=== PATIENT | male | born 1955 | race Caucasian/White ===

== ENCOUNTER 2017-01-23 13:18 | Observation (INO) | payer BC ==
[2017-01-23] MEDS ORDERED: Aspirin 81 MG Tab.Chew PO ONE (13:32)
[2017-01-23] MEDS ORDERED: Sodium Chloride 0.9% 2.5 ML Syringe FLUSH PRN (13:32)
[2017-01-23] MEDS ORDERED: Sodium Chloride 0.9% 10 ML Syringe FLUSH PRN (13:32)
[2017-01-23] MEDS ORDERED: Sodium Chloride 0.9% 1,000 ML IV ONE (13:44)
[2017-01-23] MEDS ORDERED: Sodium Chloride 0.9% 1,000 ML IV SCH (13:45)
--- NOTE | 2017-01-23 13:52 | EDM.PDOC ---
ED HPI GENERAL MEDICAL PROBLEM - General Chief Complaint: Cardiovascular Problem Stated Complaint: unk Time Seen by Provider: 01/23/17 13:30 - History of Present Illness INITIAL COMMENTS - FREE TEXT/NARRATIVE: HISTORY AND PHYSICAL: History of present illness: Patient 61-year-old male presents with concern of nausea diaphoresis and possible he'll miss he states he has not eaten anything and has not been taking adequate fluids to try mucous membranes and was working in hot humid conditions all day. He denies chest pain palpitations numbness weakness or Review of systems: As per history of present illness and below otherwise all systems reviewed and negative. Past medical history: As per history of present illness and as reviewed below otherwise noncontributory. Surgical history: As per history of present illness and as reviewed below otherwise noncontributory. Social history: No reported history of drug or alcohol abuse. Family history: As per history of present illness and as reviewed below otherwise noncontributory. Physical exam: HEENT: Atraumatic, normocephalic, pupils reactive, negative for conjunctival pallor or scleral icterus, mucous membranes dry, throat clear, neck supple, nontender, trachea midline. Lungs: Clear to auscultation, breath sounds equal bilaterally, chest nontender. Heart: S1S2, regular, negative for clicks, rubs, or JVD. Abdomen: Soft, nondistended, nontender. Negative for masses or hepatosplenomegaly. Negative for costovertebral tenderness. Pelvis: Stable nontender. Genitourinary: Deferred. Rectal: Deferred. Extremities: Atraumatic, negative for cords or calf pain. Neurovascular unremarkable. Neuro: Awake, alert, oriented. Cranial nerves II through XII unremarkable. Cerebellum unremarkable. Motor and sensory unremarkable throughout. Exam nonfocal. Diagnostics: CBC CMP troponin PT/INR chest x-ray EKG Therapeutics: Normal saline 1 L bolus aspirin 325 mg by mouth Impression: #1 probable heat illness Definitive disposition and diagnosis as appropriate pending reevaluation and review of above. - Related Data Allergies Allergy/AdvReac Type Severity Reaction Status Date / Time Penicillins Allergy Rash Verified 01/23/17 13:21 Home Meds: Home Meds metFORMIN [Glucophage] mg PO ONETIME 07/26/15 [History] Atenolol 01/23/17 [History] Lisinopril 10 mg PO DAILY 01/23/17 [History] Past Medical History Cardiovascular History: Reports: High Cholesterol, Hypertension Endocrine/Metabolic History: Reports: Diabetes, Type II - Past Surgical History HEENT Surgical History: Reports: Adenoidectomy, Tonsillectomy Social & Family History - Family History Family Medical History: Noncontributory - Tobacco Use Smoking Status *Q: Current Every Day Smoker Years of Tobacco use: 45 Packs/Tins Daily: 0.5 - Recreational Drug Use Recreational Drug Use: No ED ROS GENERAL - Review of Systems Review Of Systems: ROS reveals no pertinent complaints other than HPI. ED EXAM, GENERAL - Physical Exam Exam: See Below (See dictation) Course - Vital Signs Last Recorded V/S: Last Vital Signs Temp 36.3 C 01/23/17 13:23 Pulse 62 01/23/17 15:13 Resp 22 H 01/23/17 15:13 BP 95/53 L 01/23/17 15:13 Pulse Ox 94 L 01/23/17 15:13 - Orders/Labs/Meds Orders: Active Orders 24 hr Category Date Time Status Cardiac Monitoring [RC] . DIRECTED Care 01/23/17 13:32 Active EKG Documentation Completion [RC] STAT Care 01/23/17 13:32 Active Pulse Oximetry [RC] ASDIRECTED Care 01/23/17 13:32 Active Sodium Chloride 0.9% [Normal Saline] 1,000 ml Med 01/23/17 13:45 Active IV STAT Sodium Chloride 0.9% [Saline Flush] Med 01/23/17 13:32 Active 10 ml FLUSH ASDIRECTED PRN Sodium Chloride 0.9% [Saline Flush] Med 01/23/17 13:32 Active 2.5 ml FLUSH ASDIRECTED PRN Saline Lock Insert [OM.PC] Stat Oth 01/23/17 13:32 Ordered Medication Orders Sodium Chloride (Normal Saline) 1,000 mls @ 125 mls/hr IV STAT HI Last Admin: 01/23/17 13:54 Dose: 125 mls/hr Sodium Chloride (Saline Flush) 10 ml FLUSH ASDIRECTED PRN PRN Reason: Keep Vein Open Last Admin: 01/23/17 13:54 Dose: 10 ml Sodium Chloride (Saline Flush) 2.5 ml FLUSH ASDIRECTED PRN PRN Reason: Keep Vein Open Last Admin: 01/23/17 13:54 Dose: 2.5 ml Labs: Laboratory Tests 01/23/17 01/23/17 01/23/17 Range/Units 13:44 13:44 13:44 WBC 8.53 (4.0-11.0) K/uL RBC 3.96 L (4.50-5.90) M/uL Hgb 11.3 L (13.0-17.0) g/dL Hct 34.2 L (38.0-50.0) % MCV 86.4 (80.0-98.0) fL MCH 28.5 (27.0-32.0) pg MCHC 33.0 (31.0-37.0) g/dL RDW Std Deviation 41.3 (28.0-62.0) fl RDW Coeff of [place] 13 (11.0-15.0) % Plt Count 216 (150-400) K/uL MPV 9.40 (7.40-12.00) fL Neut % (Auto) 78.3 (48.0-80.0) % Lymph % (Auto) 14.8 L (16.0-40.0) % [place] % (Auto) 6.2 (0.0-15.0) % Eos % (Auto) 0.5 (0.0-7.0) % Baso % (Auto) 0.2 (0.0-1.5) % Neut # (Auto) 6.7 H (1.4-5.7) K/uL Lymph # (Auto) 1.3 (0.6-2.4) K/uL [place] # (Auto) 0.5 (0.0-0.8) K/uL Eos # (Auto) 0.0 (0.0-0.7) K/uL Baso # (Auto) 0.0 (0.0-0.1) K/uL Nucleated RBC % 0.0 /100WBC Nucleated RBCs # 0 K/uL INR 1.08 (0.86-1.11) D-Dimer, Quantitative 0.58 H (0.0-0.52) mg/LFEU Sodium 133 L (136-146) mmol/L Potassium 4.6 (3.5-5.1) mmol/L Chloride 100 (98-110) mmol/L Carbon Dioxide 19 L (21-31) mmol/L BUN 39 H (6.0-23.0) mg/dL Creatinine 2.0 H (0.6-1.5) mg/dL Est Cr Clr Drug Dosing TNP Estimated GFR (MDRD) 34.4 ml/min Glucose 376 H (60-110) mg/dL Calcium 9.3 (8.8-10.8) mg/dL Total Bilirubin 0.5 (0.1-1.5) mg/dL AST 24 (5-40) IU/L ALT 29 (8-54) IU/L Alkaline Phosphatase 40 (40-150) Troponin I (0.0-0.29) NG/ML B-Natriuretic Peptide (<100) PG/ML Total Protein 7.2 (6.0-8.0) g/dL Albumin 4.2 (3.5-5.0) g/dL Globulin 3.0 (2.0-3.5) g/dL Albumin/Globulin Ratio 1.4 (1.3-2.8) 01/23/17 01/23/17 Range/Units 13:44 13:44 WBC (4.0-11.0) K/uL RBC (4.50-5.90) M/uL Hgb (13.0-17.0) g/dL Hct (38.0-50.0) % MCV (80.0-98.0) fL MCH (27.0-32.0) pg MCHC (31.0-37.0) g/dL RDW Std Deviation (28.0-62.0) fl RDW Coeff of [place] (11.0-15.0) % Plt Count (150-400) K/uL MPV (7.40-12.00) fL Neut % (Auto) (48.0-80.0) % Lymph % (Auto) (16.0-40.0) % [place] % (Auto) (0.0-15.0) % Eos % (Auto) (0.0-7.0) % Baso % (Auto) (0.0-1.5) % Neut # (Auto) (1.4-5.7) K/uL Lymph # (Auto) (0.6-2.4) K/uL [place] # (Auto) (0.0-0.8) K/uL Eos # (Auto) (0.0-0.7) K/uL Baso # (Auto) (0.0-0.1) K/uL Nucleated RBC % /100WBC Nucleated RBCs # K/uL INR (0.86-1.11) D-Dimer, Quantitative (0.0-0.52) mg/LFEU Sodium (136-146) mmol/L Potassium (3.5-5.1) mmol/L Chloride (98-110) mmol/L Carbon Dioxide (21-31) mmol/L BUN (6.0-23.0) mg/dL Creatinine (0.6-1.5) mg/dL Est Cr Clr Drug Dosing Estimated GFR (MDRD) ml/min Glucose (60-110) mg/dL Calcium (8.8-10.8) mg/dL Total Bilirubin (0.1-1.5) mg/dL AST (5-40) IU/L ALT (8-54) IU/L Alkaline Phosphatase (40-150) Troponin I < 0.10 (0.0-0.29) NG/ML B-Natriuretic Peptide < 15 (<100) PG/ML Total Protein (6.0-8.0) g/dL Albumin (3.5-5.0) g/dL Globulin (2.0-3.5) g/dL Albumin/Globulin Ratio (1.3-2.8) Meds: Medications Generic Name Dose Route Start Last Admin Trade Name Freq PRN Reason Stop Dose Admin Sodium Chloride 1,000 mls @ 125 mls/hr 01/23/17 13:45 01/23/17 13:54 Normal Saline IV 125 mls/hr STAT HI Administration Sodium Chloride 10 ml 01/23/17 13:32 01/23/17 13:54 Saline Flush FLUSH 10 ml ASDIRECTED PRN Administration Keep Vein Open Sodium Chloride 2.5 ml 01/23/17 13:32 01/23/17 13:54 Saline Flush FLUSH 2.5 ml ASDIRECTED PRN Administration Keep Vein Open Discontinued Medications Generic Name Dose Route Start Last Admin Trade Name Freq PRN Reason Stop Dose Admin Aspirin 324 mg 01/23/17 13:32 01/23/17 13:53 Aspirin PO 01/23/17 13:33 324 mg ONETIME ONE Administration Sodium Chloride 1,000 mls @ 999 mls/hr 01/23/17 13:44 01/23/17 13:56 Normal Saline IV 01/23/17 14:44 999 mls/hr STAT ONE Administration Departure - Departure Time of Disposition: 15:27 Disposition: Home, Self-Care 01 Condition: good Clinical Impression: Dehydration, Heat exhaustion Forms: ED Department Discharge Additional Instructions: The following information is given to patients seen in the emergency department who are being discharged to home. This information is to outline your options for follow-up care. We provide all patients seen in our emergency department with a follow-up referral. The need for follow-up, as well as the timing and circumstances, are variable depending upon the specifics of your emergency department visit. If you don't have a primary care physician on staff, we will provide you with a referral. We always advise you to contact your personal physician following an emergency department visit to inform them of the circumstance of the visit and for follow-up with them and/or the need for any referrals to a consulting specialist. The emergency department will also refer you to a specialist when appropriate. This referral assures that you have the opportunity for followup care with a specialist. All of these measure are taken in an effort to provide you with optimal care, which includes your followup. Under all circumstances we always encourage you to contact your private physician who remains a resource for coordinating your care. When calling for followup care, please make the office aware that this follow-up is from your recent emergency room visit. If for any reason you are refused follow-up, please contact the [facility] emergency department at and asked to speak to the emergency department charge nurse. Followup primary medical doctor one to 2 days avoid heat exposure is discussed times for 72 hours push fluids return as needed as discussed - My Orders Last 24 Hours: My Active Orders 01/23/17 13:32 Cardiac Monitoring [RC] . DIRECTED EKG Documentation Completion [RC] STAT Pulse Oximetry [RC] ASDIRECTED Sodium Chloride 0.9% [Saline Flush] 10 ml FLUSH ASDIRECTED PRN Sodium Chloride 0.9% [Saline Flush] 2.5 ml FLUSH ASDIRECTED PRN Saline Lock Insert [OM.PC] Stat 01/23/17 13:45 Sodium Chloride 0.9% [Normal Saline] 1,000 ml IV STAT - Assessment/Plan Last 24 Hours: My Active Orders 01/23/17 13:32 Cardiac Monitoring [RC] . DIRECTED EKG Documentation Completion [RC] STAT Pulse Oximetry [RC] ASDIRECTED Sodium Chloride 0.9% [Saline Flush] 10 ml FLUSH ASDIRECTED PRN Sodium Chloride 0.9% [Saline Flush] 2.5 ml FLUSH ASDIRECTED PRN Saline Lock Insert [OM.PC] Stat 01/23/17 13:45 Sodium Chloride 0.9% [Normal Saline] 1,000 ml IV STAT
--- NOTE | 2017-01-23 14:13 | CR ---
EXAMINATION: Portable chest radiograph. HISTORY: Pain. FINDINGS: The trachea is midline. The cardiomediastinal silhouette is within normal limits. No pulmonary infil trates, effusions or pneumothorax. Osseous structures appear unremarkable. IMPRESSION: No acute cardiopulmonary process.
[2017-01-23 14:19] LABS: CHLORIDE,CL 100 mmol/L (98-110); SODIUM,NA 133 mmol/L (136-146)
[2017-01-23] MEDS ORDERED: Ondansetron 4 MG Tab.DIS PO PRN (16:27)
[2017-01-23] MEDS ORDERED: Temazepam 15 MG Cap PO PRN (16:27)
[2017-01-23] MEDS ORDERED: Acetaminophen 325 MG Tab PO PRN (16:27)
[2017-01-23] MEDS ORDERED: oxyCODONE 5 MG Tab PO PRN (16:27)
--- NOTE | 2017-01-23 16:35 | PCM.HP ---
H&P History of Present Illness - General Date of Service: 01/23/17 Admit Problem/Dx: Admission Diagnosis/Problem Admission Diagnosis/Problem Dehydration Source of Information: Patient History Limitations: Reports: No Limitations - History of Present Illness Initial Comments - Free Text/Narative: This 61 year old male with pmh of uncontrolled Dm type 2, HTN, and hyperlipidemia presented to the ED today with concerns of nausea, hypotension, dizziness and lightheadedness. 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 He did have a small emesis, felt very lightheaded and dizzy. He felt as though it was related to the heat and not eating today. He had no aggravating or relieving symptoms. He was brought to the ED to be evaluated. He reports no chest pain, but slight SOB. Denies abdominal pain, urinary symptoms, no constipation, but did have some diarrhea this morning. He was diaphoretic, had blurred vision and was nauseated. He reports eating poorly these last few weeks due to sister dying and having family functions surrounding this. Reports BS have been uncontrolled, noting BS ranging from 120- 370s. He does smoke and chews tobacco, drinks occasionally, and denies recreational drug use. He denies renal disease. In the ED. WBC 8,530, Hgb 11.3, Na 133, BUN 39 Cr 2.0, Glucose 376, Troponin negative. CXR negative. He was treated with ASA and NS infusion. He reports feeling a lot better now. He will be admitted for dehydration and hyperglycemia. PCP, Dr. Mckeon. Recently have check up in October, will obtain records. - Related Data Allergies/Adverse Reactions: Allergies Allergy/AdvReac Type Severity Reaction Status Date / Time Penicillins Allergy Rash Verified 01/23/17 13:21 Home Medications: Home Meds metFORMIN [Glucophage] mg PO ONETIME 07/26/15 [History] Atenolol 01/23/17 [History] Lisinopril 10 mg PO DAILY 01/23/17 [History] Past Medical History Cardiovascular History: Reports: High Cholesterol, Hypertension. Denies: Afib, Blood Clots/VTE/DVT, [place] Respiratory History: Reports: None. Denies: COPD, PE Gastrointestinal History: Denies: GERD, GI Bleed Genitourinary History: Reports: None Endocrine/Metabolic History: Reports: Diabetes, Type II, Obesity/BMI 30+ - Past Surgical History HEENT Surgical History: Reports: Adenoidectomy, Tonsillectomy Social & Family History - Family History Family Medical History: Noncontributory - Tobacco Use Smoking Status *Q: Current Every Day Smoker Tobacco Use Within Last Twelve Months: Cigarettes, Smokeless Tobacco Years of Tobacco use: 45 Packs/Tins Daily: 0.5 - Alcohol Use Alcohol Use Frequency: Socially - Recreational Drug Use Recreational Drug Use: No - Living Situation & Occupation Occupation: Employed H&P Review of Systems - Review of Systems: Review Of Systems: See Below General: Reports: Fatigue, Diaphoresis. Denies: Fever, Chills HEENT: Reports: Visual Changes (blurred vision, improved) Pulmonary: Reports: Shortness of Breath. Denies: Wheezing, Pleuritic Chest Pain , Cough, Sputum Cardiovascular: Reports: Lightheadedness, Blood Pressure Problem (low BP noted) . Denies: Chest Pain, Palpitations, Dyspnea on Exertion, Edema Gastrointestinal: Reports: Nausea, Vomiting. Denies: Abdominal Pain, Black Stool, Bloody Stool, Melena Genitourinary: Reports: No Symptoms. Denies: Dysuria, Frequency, Burning Musculoskeletal: Reports: No Symptoms. Denies: Neck Pain Skin: Reports: No Symptoms Psychiatric: Reports: No Symptoms Neurological: Reports: No Symptoms Hematologic/Lymphatic: Reports: No Symptoms Immunologic: Reports: No Symptoms Exam - Exam Exam: See Below - Vital Signs Vital Signs: Last Vital Signs Temp 97.7 F 01/23/17 16:30 Pulse 70 01/23/17 16:30 Resp 16 01/23/17 16:30 BP 109/65 01/23/17 16:30 Pulse Ox 98 01/23/17 16:30 Weight: 0 g - Exam Quality Assessment: DVT Prophylaxis General: Alert, Oriented, Cooperative, Other (no apparent distress) HEENT: Conjunctiva Clear, Nares Patent, Posterior Pharynx Clear, Pupils Reactive. No: Mucosa Moist & [place] (dry mucous membranes, lips cracked) Neck: Supple, Trachea Midline. No: Lymphadenopathy, JVD Lungs: Clear to Auscultation, Normal Respiratory Effort Cardiovascular: Regular Rate, Regular Rhythm, Normal S1, Normal S2 Abdomen: Normal Bowel Sounds, Soft. No: Distention, Guarding, Tenderness Back Exam: Normal Inspection, Full Range of Motion, NT Extremities: Normal Inspection, Normal Pulses. No: Calf Tenderness Skin: Warm, Dry, Intact Neuro Extensive - Mental Status: Alert, Oriented x3, Normal Mood/Affect, Normal Cognition Neuro Extensive - Motor, Sensory, Reflexes: CN II-XII Intact, Normal Gait Psychiatric: Alert, Normal Affect, Normal Mood - Patient Data Result Diagrams: 01/23/17 13:44 01/23/17 13:44 *Q Meaningful Use (ADM) - VTE *Q VTE Criteria *Q: - VTE Risk Assess *Q Each Risk Factor Represents 1 Point: Age 41 - 59 years, Obesity (BMI greater than 30) Total Score 1 Point Risk Factors: 2 Each Risk Factor Represents 2 Points: None Total Score 2 Point Risk Factors: 0 Each Risk Factor Represents 3 Points: None Total Score 3 Point Risk Factors: 0 Each Risk Factor Represents 5 Points: None Total Score 5 Point Risk Factors: 0 Venous Thromboembolism Risk Factor Score *Q: 2 - Stroke *Q Stroke Criteria *Q: - AMI *Q AMI Criteria *Q: - Problem List (1) Dehydration SNOMED Code(s): 03631972 ICD Code: E86.0 - DEHYDRATION Status: Acute Current Visit: Yes (2) KELL (acute kidney injury) SNOMED Code(s): 10618927 ICD Code: N17.9 - ACUTE KIDNEY FAILURE, UNSPECIFIED Status: Acute Current Visit: Yes (3) HTN (hypertension) SNOMED Code(s): 01729148 ICD Code: I10 - ESSENTIAL (PRIMARY) HYPERTENSION Status: Chronic Current Visit: Yes Qualifiers: Hypertension type: essential hypertension Qualified Code(s): I10 - Essential (primary) hypertension (4) DM type 2 (diabetes mellitus, type 2) SNOMED Code(s): 82300812 ICD Code: E11.9 - TYPE 2 DIABETES MELLITUS WITHOUT COMPLICATIONS Status: Chronic Current Visit: Yes Qualifiers: Diabetes mellitus complication status: with neurologic complications Diabetes mellitus complication detail: with unspecified neuropathy Diabetes mellitus terminologist insulin use: without terminologist use Qualified Code(s): E11.40 - Type 2 diabetes mellitus with diabetic neuropathy, unspecified Problem List Initiated/Reviewed/Updated: Yes Orders Last 24hrs: Medication Orders Acetaminophen (Tylenol) 650 mg PO Q4H PRN PRN Reason: Pain (Mild 1-3)/fever Sodium Chloride (Normal Saline) 1,000 mls @ 125 mls/hr IV STAT HI Last Admin: 01/23/17 13:54 Dose: 125 mls/hr Sodium Chloride (Normal Saline) 1,000 mls @ 175 mls/hr IV ASDIRECTED HI Ondansetron HCl (Zofran Odt) 4 mg PO Q4H PRN PRN Reason: nausea, able to take PO Oxycodone HCl (Oxycodone) 5 mg PO Q4H PRN PRN Reason: Pain (moderate 4-6) Sodium Chloride (Saline Flush) 10 ml FLUSH ASDIRECTED PRN PRN Reason: Keep Vein Open Last Admin: 01/23/17 13:54 Dose: 10 ml Sodium Chloride (Saline Flush) 2.5 ml FLUSH ASDIRECTED PRN PRN Reason: Keep Vein Open Last Admin: 01/23/17 13:54 Dose: 2.5 ml Temazepam (Restoril) 15 mg PO BEDTIME PRN PRN Reason: Sleep Assessment/Plan Comment:: This 61 year old male admitted with dehydration, KELL and uncontrolled DM with hyperglycemia 1. Dehydration: Will continue IVFs. Monitor electrolytes in am. I/Os Monitor VS. Already feeling better after fluids in ED. 2. KELL: Secondary to dehydration. Will hold FREIDA due KELL. Records from Dr. Mckeon reveal baseline BUN 16 and Cr 0.75. 3. DM type 2: Most recent A1c from clinic in October, A1c 7.5. Will recheck due to elevated sugars now. At that appointment Metformin was increased to 1,[address] on Novolog Moderate SSI. Monitor BS TIDAC. Hold Metformin. 4. Hyperlipidemia: Continue Lovastatin and Antara. 5. HTN: Hold Lisinopril due to KELL. Will restart Atenolol. VTE prophylaxis: Heparin. Dispo: 1-2 days pending improvement.
[2017-01-23] MEDS: Sodium Chloride 0.9% 1,000 ML IV SCH ×2 (16:55→21:57)
[2017-01-23] MEDS: Insulin Aspart 100 Units/ML 3 ML Pen SUBCUT SCH (17:08)
[2017-01-24] MEDS: Sodium Chloride 0.9% 1,000 ML IV SCH ×2 (03:19→09:59)
[2017-01-24] MEDS: Insulin Aspart 100 Units/ML 3 ML Pen SUBCUT SCH ×2 (07:08→11:52)
[2017-01-24] MEDS ORDERED: FENOFIBRATE 130 MG PO SCH (09:00)
[2017-01-24] MEDS ORDERED: Lisinopril 10 MG Tab PO SCH (09:00)
[2017-01-24] MEDS ORDERED: Atenolol 25 MG Tab PO SCH (09:00)
--- NOTE | 2017-01-24 09:13 | PCM.DCSUM1 ---
Discharge Summary - Hospital Course Brief History: This 61 year old male with pmh of uncontrolled Dm type 2, HTN, and hyperlipidemia presented to the ED 01/23/2017 with concerns of nausea, hypotension, dizziness and lightheadedness. 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 He did have a small emesis, felt very lightheaded and dizzy. He felt as though it was related to the heat and not eating today. He had no aggravating or relieving symptoms. He was brought to the ED to be evaluated. He reports no chest pain, but slight SOB. Denies abdominal pain, urinary symptoms, no constipation, but did have some diarrhea this morning. He was diaphoretic, had blurred vision and was nauseated. He reports eating poorly these last few weeks due to sister dying and having family functions surrounding this. Reports BS have been uncontrolled, noting BS ranging from 120-370s. He does smoke and chews tobacco, drinks occasionally, and denies recreational drug use. He denies renal disease. In the ED. WBC 8,530 , Hgb 11.3, Na 133, BUN 39 Cr 2.0, Glucose 376, Troponin negative. CXR negative. He was treated with ASA and NS infusion. He reports feeling a lot better now. He was admitted observation for dehydration and hyperglycemia. - Discharge Data Discharge Date: 01/24/17 Discharge Disposition: Home, Self-Care 01 Condition: Good - Discharge Diagnosis/Problem(s) (1) Dehydration SNOMED Code(s): 07615059 ICD Code: E86.0 - DEHYDRATION Status: Acute Current Visit: Yes (2) KELL (acute kidney injury) SNOMED Code(s): 90380913 ICD Code: N17.9 - ACUTE KIDNEY FAILURE, UNSPECIFIED Status: Acute Current Visit: Yes (3) HTN (hypertension) SNOMED Code(s): 15813795 ICD Code: I10 - ESSENTIAL (PRIMARY) HYPERTENSION Status: Chronic Current Visit: Yes Qualifiers: Hypertension type: essential hypertension Qualified Code(s): I10 - Essential (primary) hypertension (4) DM type 2 (diabetes mellitus, type 2) SNOMED Code(s): 05968576 ICD Code: E11.9 - TYPE 2 DIABETES MELLITUS WITHOUT COMPLICATIONS Status: Chronic Current Visit: Yes Qualifiers: Diabetes mellitus complication status: with neurologic complications Diabetes mellitus complication detail: with unspecified neuropathy 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 use: without residential property tax appraiser use Qualified Code(s): E11.40 - Type 2 diabetes mellitus with diabetic neuropathy, unspecified - Patient Instructions Diet: Diabetic Diet Activity: As Tolerated Driving: May Drive Today Showering/Bathing: May Shower Notify Provider of: Fever, Increased Pain, Swelling and Redness, Drainage, Nausea and/or Vomiting - Discharge Plan Home Medications: Home Meds metFORMIN [Glucophage] 1,000 mg PO BIDMEALS 07/26/15 [History] Atenolol 25 mg PO DAILY 01/23/17 [History] Fenofibrate 130 mg PO DAILY 01/23/17 [History] Lisinopril 20 mg PO DAILY 01/23/17 [History] Lovastatin 40 mg PO BEDTIME 01/23/17 [History] SitaGLIPtin [Januvia] 100 mg PO DAILY 01/23/17 [History] Forms: ED Department Discharge Referrals: PCP,Unknown [Primary Care Provider] - Zeeshan Mckeon MD [Physician] - (Follow up in 1 week also arrange appointment with DM educator at [facility] same day) - Discharge Summary/Plan Comment DC Time >30 min.: No Discharge Summary/Plan Comment: Discharge Diagnoses: Dehydration-resolved KELL- resolving DM type 2, uncontrolled HTN Chris was admitted for observation for IVF resuscitation. He was treated with IVFs overnight. BUN and Cr improved, 35/1.3 today. He is feeling much better today. Mucous membranes are no longer dry and cracked appearing. He is tolerating diet and drinking good fluids. BS have improved, 140-200s. BP has stabilized. A1C was obtained due to elevating BS at home, 8.1. Last noted in October was 7.5. He reports he has gain 11 lbs or so in the last month or two. I encouraged him to really focus on his diet, discussed with him for 10 minutes the importance of counting carbs and focusing on lean meats and vegetables. Also on increasing his activity level, starting with just walking 20-30 minutes an evening. He agrees he needs to watch his diet more closely and to start exercising more. He is requesting discharge today. I did speak with Dr. Mckeon regarding increase in A1c and he will follow in clinic. He reported he started Januvia in October. I spoke with Bakari after this conversation and he reports he took it for a month then wasn't able to afford it, his sisters will help figure this out. He in the past was on Victoza, but this caused nausea and it was stopped. Will hold Lisinopril for the next few days due to KELL and encourage him to drink plenty of fluids. Will arrange follow up with Dr. Mckeon and DM educator at [facility]. He is to return to ED or clinic earlier if concerns should arise. - General Info Date of Service: 01/24/17 Admission Dx/Problem (Free Text: Admission Diagnosis/Problem Admission Diagnosis/Problem Dehydration Subjective Update: Reports feeling really good this morning. Denies chest pain or SOB, no palpitations. He has no further episodes of dizziness, lightheadedness or nausea. He is tolerating diet well and drinking fluids. Eager to be discharged. Functional Status: Reports: pain controlled, tolerating diet, ambulating, urinating - Review of Systems General: Reports: No Symptoms. Denies: Fever, Weakness, Fatigue HEENT: Reports: visual changes (has noticed blurred vision increasing last couple months, is due for yearly diabetic eye exam. But worsened blurred vision from yesterday is gone. ) Pulmonary: Reports: no symptoms. Denies: shortness of breath Cardiovascular: Reports: No Symptoms. Denies: Chest Pain, Palpitations, Orthopnea, Edema Gastrointestinal: Reports: Other (two episodes of loose stool). Denies: Constipation, Diarrhea, Nausea, Vomiting Genitourinary: Reports: no symptoms. Denies: dysuria, frequency, burning Musculoskeletal: Reports: no symptoms Skin: Reports: no symptoms Neurological: Reports: No Symptoms Psychiatric: Reports: no symptoms - Patient Data Vitals - Most Recent: Last Vital Signs Temp 97.6 F 01/24/17 08:00 Pulse 72 01/24/17 08:00 Resp 22 H 01/24/17 08:00 BP 111/42 L 01/24/17 08:00 Pulse Ox 94 L 01/24/17 08:00 Weight - Most Recent: 112.582 kg I&O - Last 24 hours: Intake & Output 01/23/17 01/24/17 01/24/17 22:59 06:59 14:59 Intake Total 999 1240 Output Total 225 Balance 999 1015 Lab Results - Last 24 hrs: Laboratory Results - last 24 hr 01/23/17 01/23/17 01/24/17 Range/Units 16:59 21:56 04:13 WBC 6.65 (4.0-11.0) K/uL RBC 3.82 L (4.50-5.90) M/uL Hgb 10.8 L (13.0-17.0) g/dL Hct 33.2 L (38.0-50.0) % MCV 86.9 (80.0-98.0) fL MCH 28.3 (27.0-32.0) pg MCHC 32.5 (31.0-37.0) g/dL RDW Std Deviation 41.6 (28.0-62.0) fl RDW Coeff of [place] 13 (11.0-15.0) % Plt Count 195 (150-400) K/uL MPV 9.70 (7.40-12.00) fL Neut % (Auto) 52.6 (48.0-80.0) % Lymph % (Auto) 36.5 (16.0-40.0) % [place] % (Auto) 8.6 (0.0-15.0) % Eos % (Auto) 1.8 (0.0-7.0) % Baso % (Auto) 0.5 (0.0-1.5) % Neut # (Auto) 3.5 (1.4-5.7) K/uL Lymph # (Auto) 2.4 (0.6-2.4) K/uL [place] # (Auto) 0.6 (0.0-0.8) K/uL Eos # (Auto) 0.1 (0.0-0.7) K/uL Baso # (Auto) 0.0 (0.0-0.1) K/uL Nucleated RBC % 0.0 /100WBC Nucleated RBCs # 0 K/uL Sodium (136-146) mmol/L Potassium (3.5-5.1) mmol/L Chloride (98-110) mmol/L Carbon Dioxide (21-31) mmol/L BUN (6.0-23.0) mg/dL Creatinine (0.6-1.5) mg/dL Est Cr Clr Drug Dosing mL/min Estimated GFR (MDRD) ml/min Glucose (60-110) mg/dL POC Glucose 147 H 193 H (60-110) mg/dL Calcium (8.8-10.8) mg/dL Phosphorus (2.4-4.7) mg/dL Magnesium (1.5-2.3) mEq/L Total Bilirubin (0.1-1.5) mg/dL AST (5-40) IU/L ALT (8-54) IU/L Alkaline Phosphatase (40-150) Total Protein (6.0-8.0) g/dL Albumin (3.5-5.0) g/dL Globulin (2.0-3.5) g/dL Albumin/Globulin Ratio (1.3-2.8) 01/24/17 01/24/17 01/24/17 Range/Units 04:13 04:13 06:08 WBC (4.0-11.0) K/uL RBC (4.50-5.90) M/uL Hgb (13.0-17.0) g/dL Hct (38.0-50.0) % MCV (80.0-98.0) fL MCH (27.0-32.0) pg MCHC (31.0-37.0) g/dL RDW Std Deviation (28.0-62.0) fl RDW Coeff of [place] (11.0-15.0) % Plt Count (150-400) K/uL MPV (7.40-12.00) fL Neut % (Auto) (48.0-80.0) % Lymph % (Auto) (16.0-40.0) % [place] % (Auto) (0.0-15.0) % Eos % (Auto) (0.0-7.0) % Baso % (Auto) (0.0-1.5) % Neut # (Auto) (1.4-5.7) K/uL Lymph # (Auto) (0.6-2.4) K/uL [place] # (Auto) (0.0-0.8) K/uL Eos # (Auto) (0.0-0.7) K/uL Baso # (Auto) (0.0-0.1) K/uL Nucleated RBC % /100WBC Nucleated RBCs # K/uL Sodium 137 (136-146) mmol/L Potassium 4.3 (3.5-5.1) mmol/L Chloride 105 (98-110) mmol/L Carbon Dioxide 20 L (21-31) mmol/L BUN 35 H (6.0-23.0) mg/dL Creatinine 1.3 (0.6-1.5) mg/dL Est Cr Clr Drug Dosing 71.13 mL/min Estimated GFR (MDRD) 56.5 ml/min Glucose 208 H (60-110) mg/dL POC Glucose 187 H (60-110) mg/dL Calcium 9.1 (8.8-10.8) mg/dL Phosphorus 3.7 (2.4-4.7) mg/dL Magnesium 1.7 (1.5-2.3) mEq/L Total Bilirubin 0.4 (0.1-1.5) mg/dL AST 23 (5-40) IU/L ALT 29 (8-54) IU/L Alkaline Phosphatase 41 (40-150) Total Protein 6.7 (6.0-8.0) g/dL Albumin 4.1 (3.5-5.0) g/dL Globulin 2.6 (2.0-3.5) g/dL Albumin/Globulin Ratio 1.6 (1.3-2.8) Med Orders - Current: Current Medications Acetaminophen (Tylenol) 650 mg PO Q4H PRN PRN Reason: Pain (Mild 1-3)/fever Atenolol (Tenormin) 25 mg PO DAILY HI Sodium Chloride (Normal Saline) 1,000 mls @ 175 mls/hr IV ASDIRECTED [facility] Last Admin: 01/24/17 03:19 Dose: 175 mls/hr Insulin Aspart (Novolog) 0 unit SUBCUT TIDAC HI PRN Reason: Protocol Last Admin: 01/24/17 07:08 Dose: 2 units Lovastatin (Mevacor) 40 mg PO BEDTIME HI Ondansetron HCl (Zofran Odt) 4 mg PO Q4H PRN PRN Reason: nausea, able to take PO Oxycodone HCl (Oxycodone) 5 mg PO Q4H PRN PRN Reason: Pain (moderate 4-6) Fenofibrate [ (Fenofibrate] 130 Mg) 1 each PO DAILY HI Sodium Chloride (Saline Flush) 10 ml FLUSH ASDIRECTED PRN PRN Reason: Keep Vein Open Last Admin: 01/23/17 13:54 Dose: 10 ml Sodium Chloride (Saline Flush) 2.5 ml FLUSH ASDIRECTED PRN PRN Reason: Keep Vein Open Last Admin: 01/23/17 13:54 Dose: 2.5 ml Temazepam (Restoril) 15 mg PO BEDTIME PRN PRN Reason: Sleep Discontinued Medications Aspirin (Aspirin) 324 mg PO ONETIME ONE Stop: 01/23/17 13:33 Last Admin: 01/23/17 13:53 Dose: 324 mg Sodium Chloride (Normal Saline) 1,000 mls @ 125 mls/hr IV STAT HI Last Admin: 01/23/17 13:54 Dose: 125 mls/hr Sodium Chloride (Normal Saline) 1,000 mls @ 999 mls/hr IV STAT ONE Stop: 01/23/17 14:44 Last Admin: 01/23/17 13:56 Dose: 999 mls/hr Lisinopril (Prinivil) 10 mg PO DAILY HI - Exam General: Reports: alert, oriented, cooperative, no acute distress HEENT: Reports: Mucous membr. moist/pink Neck: Reports: supple Lungs: Reports: Clear to auscultation, Normal respiratory effort Cardiovascular: Reports: Regular Rate, Regular Rhythm Abdomen: Reports: bowel sounds present, soft, no tenderness, no distension Extremities: Reports: no edema, normal pulses Neurological: Reports: no new focal deficit Psy/Mental Status: Reports: alert, normal affect, normal mood *Q Meaningful Use (DIS) - VTE *Q VTE Criteria *Q: - Stroke *Q Stroke Criteria *Q: - AMI *Q AMI Criteria *Q:
[2017-01-24 11:48] VITALS: BP 146/64
== END 2017-01-24 12:25 | disposition home or self-care (01) ==
LOC: MW.ED 13:18 → MW.MS 16:28
PROVIDERS: ADMIT Internal Medicine; ATTEND Internal Medicine
DX: E86.0 Dehydration (principal); N17.9 Acute kidney failure, unspecified; I10 Essential (primary) hypertension; E11.40 Type 2 diabetes mellitus with diabetic neuropathy, unspecified; E78.5 Hyperlipidemia, unspecified; E78.00 Pure hypercholesterolemia, unspecified; E66.9 Obesity, unspecified; F17.210 Nicotine dependence, cigarettes, uncomplicated; Z79.84 Long term (current) use of oral hypoglycemic drugs; Z79.899 Other long term (current) drug therapy; Z88.0 Allergy status to penicillin; Z90.89 Acquired absence of other organs
CPT/HCPCS: 36415; 71010; 80053; 82962; 83036; 83735; 83880; 84100; 84484; 85025; 85379; 85610; 93005; 96360; 96361; 99284; A9270; J1815; J7040; 99285; G0378

== ENCOUNTER 2019-01-01 11:13 | Emergency (ER) | payer BC ==
--- NOTE | 2019-01-01 11:25 | EDM.PDOC ---
ED HPI GENERAL MEDICAL PROBLEM - General Chief Complaint: ENT Problem Stated Complaint: BLOODY NOSE Time Seen by Provider: 01/01/19 11:16 Source of Information: Reports: Patient History Limitations: Reports: No Limitations - History of Present Illness INITIAL COMMENTS - FREE TEXT/NARRATIVE: HISTORY AND PHYSICAL: History of present illness: Patient is a 63-year-old male presents to the ED today for concern of a nosebleed that occurred just prior to arrival to the ED. Patient states he had bent over at work when his nose started bleeding. Patient states he is not on any blood thinners and denies injury or trauma to nose. Patient denies fever, chills, chest pain, shortness of breath, or cough. Denies headache, neck stiff ness, change in vision, syncope, or near syncope. Denies nausea, vomiting, abdominal pain, diarrhea, constipation, or dysuria. Has not noted any blood in urine or stool. Patient has been eating and drinking appropriately. Review of systems: As per history of present illness and below otherwise all systems reviewed and negative. Past medical history: As per history of present illness and as reviewed below otherwise noncontributory. Surgical history: As per history of present illness and as reviewed below otherwise noncontributory. Social history: See social history for further information Family history: As per history of present illness and as reviewed below otherwise noncontributory. Physical exam: General: Patient is alert, oriented, and in no acute distress. Patient sitting comfortably on exam table. HEENT: Atraumatic, normocephalic, pupils equal and reactive bilaterally, negative for conjunctival pallor or scleral icterus, mucous membranes moist, TMs normal bilaterally, throat clear, neck supple, nontender, trachea midline. No drooling or trismus noted. No meningeal signs. No hot potato voice noted. Right nare bleeding. After bleeding stopped, appeared to be bleeding from Kiessel[place] plexus. This area was cauterized with silver nitrate after bleeding stopped. Lungs: Clear to auscultation, breath sounds equal bilaterally, chest nontender. Heart: S1S2, regular rate and rhythm without overt murmur Abdomen: Soft, nondistended, nontender. Negative for masses or hepatosplenomegaly. Negative for costovertebral tenderness. Pelvis: Stable nontender. Genitourinary: Deferred. Rectal: Deferred. Skin: Intact, warm, dry. No lesions or rashes noted. Extremities: Atraumatic, negative for cords or calf pain. Neurovascular unremarkable. Neuro: Awake, alert, oriented. Cranial nerves II through XII unremarkable. Cerebellum unremarkable. Motor and sensory unremarkable throughout. Exam nonfocal. Notes: Soaked pledget in lidocaine with epi and placed in right nare and clamped for 10 minutes. Bleeding stopped following this. Performed cautery with silver nitrate and monitored for rebleed for an additional 15-20 minutes. Bleeding remained stopped. Discussed the importance for follow-up with primary care provider. Voices understanding and is agreeable to plan of care. Denies any further questions or concerns at this time. Diagnostics: None Therapeutics: Lidocaine with epi, silver nitrate Prescription: None Impression: Nose bleed Plan: 1. Follow up with her primary care provider as discussed. 2. Return to the ED as needed and as discussed. Definitive disposition and diagnosis as appropriate pending reevaluation and review of above. - Related Data Allergies Allergy/AdvReac Type Severity Reaction Status Date / Time Penicillins Allergy Rash Verified 01/01/19 11:25 Home Meds: Home Meds metFORMIN [Glucophage] 1,000 mg PO BIDMEALS 07/26/15 [History] Atenolol 25 mg PO DAILY 01/23/17 [History] Fenofibrate 130 mg PO DAILY 01/23/17 [History] Lovastatin 40 mg PO BEDTIME 01/23/17 [History] SitaGLIPtin [Januvia] 100 mg PO DAILY 01/23/17 [History] Lisinopril 20 mg PO DAILY #0 01/24/17 [Rx] Empagliflozin [Jardiance] 01/01/19 [History] Past Medical History Cardiovascular History: Reports: High Cholesterol, Hypertension. Denies: Afib, Blood Clots/VTE/DVT, DE Respiratory History: Reports: None. Denies: COPD, PE Genitourinary History: Reports: None Endocrine/Metabolic History: Reports: Diabetes, Type II, Obesity/BMI 30+ - Infectious Disease History Infectious Disease History: Reports: Chicken Pox, Measles, Mumps - Past Surgical History HEENT Surgical History: Reports: Adenoidectomy, Tonsillectomy Social & Family History - Family History Family Medical History: Noncontributory Oncologic: Reports: Brain Other Oncologic Family History: sister just from brain cancer - Caffeine Use Caffeine Use: Reports: Coffee, Soda - Living Situation & Occupation Occupation: Employed ED ROS ENT - Review of Systems Review Of Systems: ROS reveals no pertinent complaints other than HPI. ED EXAM, ENT - Physical Exam Exam: See Below (See dictation) Course - Vital Signs Last Recorded V/S: Last Vital Signs Temp 36.4 C 01/01/19 11:23 Pulse 86 01/01/19 11:23 Resp 18 01/01/19 11:23 BP 121/47 L 01/01/19 11:23 Pulse Ox 97 01/01/19 11:23 - Orders/Labs/Meds Meds: Medications Discontinued Medications Generic Name Dose Route Start Last Admin Trade Name Joanie PRN Reason Stop Dose Admin Lidocaine/Epinephrine 20 ml 01/01/19 11:44 01/01/19 11:47 Xylocaine 1% With Epinephrine 1:100,000 INJECT 01/01/19 11:45 20 ml ONETIME ONE Administration Lidocaine/Epinephrine Confirm 01/01/19 11:43 01/01/19 11:49 Xylocaine 1% With Epinephrine 1:100,000 Administered 01/01/19 11:44 Not Given Dose 20 ml .ROUTE .STK-MED ONE Departure - Departure Time of Disposition: 12:20 Disposition: Home, Self-Care 01 Clinical Impression: Bleeding nose - Discharge Information Instructions: Nosebleed, Adult Referrals: PCP,None [Primary Care Provider] - Forms: ED Department Discharge Additional Instructions: The following information is given to patients seen in the emergency department who are being discharged to home. This information is to outline your options for follow-up care. We provide all patients seen in our emergency department with a follow-up referral. The need for follow-up, as well as the timing and circumstances, are variable depending upon the specifics of your emergency department visit. If you don't have a primary care physician on staff, we will provide you with a referral. We always advise you to contact your personal physician following an emergency department visit to inform them of the circumstance of the visit and for follow-up with them and/or the need for any referrals to a consulting specialist. The emergency department will also refer you to a specialist when appropriate. This referral assures that you have the opportunity for follow-up care with a specialist. All of these measure are taken in an effort to provide you with optimal care, which includes your follow-up. Under all circumstances we always encourage you to contact your private physician who remains a resource for coordinating your care. When calling for follow-up care, please make the office aware that this follow-up is from your recent emergency room visit. If for any reason you are refused follow-up, please contact the [facility] Emergency Department at and asked to speak to the emergency department charge nurse. [facility] Primary Care [address] [place] [id number] [facility] [address] [place] [id number] 1. Follow up with your primary care provider as discussed. 2. Return to the ED as needed and as discussed.
[2019-01-01] MEDS ORDERED: Lidocaine 1% with EPINEPHrine 1:100,000 10 ML MDV INJECT ONE (11:41)
[2019-01-01] MEDS ORDERED: Lidocaine 1% with EPINEPHrine 1:100,000 20 ML MDV ONE (11:43)
[2019-01-01] MEDS ORDERED: Lidocaine 1% with EPINEPHrine 1:100,000 20 ML MDV INJECT ONE (11:44)
[2019-01-01 13:15] VITALS: BP 103/60
== END 2019-01-01 13:12 | disposition home or self-care (01) ==
LOC: MW.ED 11:13
DX: R04.0 Epistaxis (principal); E11.9 Type 2 diabetes mellitus without complications; I10 Essential (primary) hypertension; E78.00 Pure hypercholesterolemia, unspecified; Z79.84 Long term (current) use of oral hypoglycemic drugs; Z79.899 Other long term (current) drug therapy; Z88.0 Allergy status to penicillin
CPT/HCPCS: 30901; 99282; 99283

== ENCOUNTER 2022-02-02 06:30 | Day surgery (SDC) | payer BC ==
[~2022-02-02 06:30] MED LIST: Lactated Ringers 1,000 ML IV SCH
[2022-02-02] MEDS ORDERED: Propofol 200 MG/20 ML SDV ONE ×2 (07:28→07:30)
[2022-02-02] MEDS ORDERED: Lidocaine 2% 5 ML SDV ONE (07:28)
[2022-02-02] MEDS ORDERED: fentaNYL 100 MCG/2 ML SDV ONE (07:28)
[2022-02-02 08:32] VITALS: PULSE 60
[2022-02-02 08:46] VITALS: BP 104/50
== END 2022-02-02 08:55 | disposition home or self-care (01) ==
LOC: MW.SDS 06:30
PROVIDERS: ATTEND Surgery
DX: Z12.11 Encounter for screening for malignant neoplasm of colon (principal); K57.30 Diverticulosis of large intestine without perforation or abscess without bleeding; K64.8 Other hemorrhoids; E11.9 Type 2 diabetes mellitus without complications; F17.210 Nicotine dependence, cigarettes, uncomplicated; D64.9 Anemia, unspecified; E78.00 Pure hypercholesterolemia, unspecified; I10 Essential (primary) hypertension; F41.9 Anxiety disorder, unspecified; F32.A Depression, unspecified; E66.9 Obesity, unspecified; Z68.35 Body mass index [BMI] 35.0-35.9, adult; Z98.890 Other specified postprocedural states; Z88.0 Allergy status to penicillin; Z79.84 Long term (current) use of oral hypoglycemic drugs; Z79.899 Other long term (current) drug therapy
CPT/HCPCS: 45378; 82947; J2704; J3010; J7120; 00812

== ENCOUNTER 2022-02-23 08:58 | Emergency (ER) | payer BC ==
[2022-02-23] MEDS ORDERED: Sodium Chloride 0.9% 2.5 ML Syringe FLUSH PRN (09:12)
[2022-02-23] MEDS ORDERED: Sodium Chloride 0.9% 1,000 ML IV ONE ×2 (09:12)
[2022-02-23] MEDS ORDERED: Sodium Chloride 0.9% 10 ML Syringe FLUSH PRN (09:12)
[2022-02-23] MEDS ORDERED: Ondansetron 4 MG/2 ML SDV IVPUSH ONE (09:12)
[2022-02-23 10:08] LABS: CARBON DIOXIDE,CO2 23.2 mmol/L (21.0-32.0); POTASSIUM,K 4.6 mmol/L (3.5-5.1)
[2022-02-23 10:46] VITALS: PULSE 77
[2022-02-23 12:04] VITALS: BP 104/46
[2022-02-24] MEDS ORDERED: Iopamidol 755 MG/ML 500 ML Multipack Bottle IVPUSH STA (07:18)
== END 2022-02-23 12:25 | disposition home or self-care (01) ==
LOC: MW.ED 08:58
DX: U07.1 COVID-19 (principal); I10 Essential (primary) hypertension; E11.9 Type 2 diabetes mellitus without complications; E78.00 Pure hypercholesterolemia, unspecified; E66.9 Obesity, unspecified; Z88.0 Allergy status to penicillin; Z79.84 Long term (current) use of oral hypoglycemic drugs; Z79.899 Other long term (current) drug therapy; Z68.34 Body mass index [BMI] 34.0-34.9, adult
CPT/HCPCS: 36415; 70450; 71045; 71275; 80053; 81003; 83690; 83735; 84484; 85025; 85610; 87635; 93005; 96361; 96374; 99284; J2405; J7030; 93010; U0002

== ENCOUNTER 2022-03-05 07:29 | Emergency (ER) | payer BC ==
[2022-03-05 09:04] LABS: CARBON DIOXIDE,CO2 22.3 mmol/L (21.0-32.0); POTASSIUM,K 3.9 mmol/L (3.5-5.1)
[2022-03-05 09:36] VITALS: BP 144/65; PULSE 67
== END 2022-03-05 09:34 | disposition home or self-care (01) ==
LOC: MW.ED 07:29
DX: U07.1 COVID-19 (principal); E86.0 Dehydration; E78.00 Pure hypercholesterolemia, unspecified; I10 Essential (primary) hypertension; E11.9 Type 2 diabetes mellitus without complications; E66.9 Obesity, unspecified; Z68.34 Body mass index [BMI] 34.0-34.9, adult; Z88.0 Allergy status to penicillin; Z79.84 Long term (current) use of oral hypoglycemic drugs; Z86.16 Personal history of COVID-19; Z87.891 Personal history of nicotine dependence
CPT/HCPCS: 36415; 71045; 71045-26; 80053; 84443; 84484; 85025; 93005; 93010; 99284; 99285

== ENCOUNTER 2022-09-07 11:38 | Emergency (ER) | payer BC ==
[2022-09-07 11:50] VITALS: BP 109/40; PULSE 65
[2022-09-07] MEDS ORDERED: Ketorolac 60 MG/2 ML SDV IM STA (11:56)
[2022-09-07] MEDS ORDERED: Orphenadrine 60 MG/2 ML Inj IM STA (11:57)
== END 2022-09-07 13:41 | disposition home or self-care (01) ==
LOC: MW.ED 11:38
DX: S22.32XA Fracture of one rib, left side, initial encounter for closed fracture (principal); E78.00 Pure hypercholesterolemia, unspecified; E11.9 Type 2 diabetes mellitus without complications; E66.9 Obesity, unspecified; Z68.37 Body mass index [BMI] 37.0-37.9, adult; Z79.84 Long term (current) use of oral hypoglycemic drugs; Z79.899 Other long term (current) drug therapy; Z88.0 Allergy status to penicillin; Z87.891 Personal history of nicotine dependence; W22.8XXA Striking against or struck by other objects, initial encounter
CPT/HCPCS: 71100; 96372; 99283; J1885; J2360